=== PATIENT | female | born 1950 | race Caucasian/White ===

== ENCOUNTER 2022-07-23 09:26 | Observation (INO) | payer MEDICARE ==
[2022-07-18 09:36] VITALS: BMI 22.1
[~2022-07-23 09:26] MED LIST: ACETAMINOPHEN TAB 500 MG TAB PO PRN; GABAPENTIN 300 MG CAP PO PRN; MELOXICAM 7.5 MG TAB PO PRN; TRANEXAMIC ACID IN NACL,ISO-OS 1,000 MG in SALINE 1 100ML.BAG IVPB PRN; fentaNYL (PF) 50 MCG/ML 2 ML AMP IV PRN
[2022-07-23] MEDS: LACTATED RINGERS 1,000 ML IV SCH ×2 (09:54→18:04)
[2022-07-23] MEDS ORDERED: ONDANSETRON 4 MG/2 ML VIAL ONE (10:18)
[2022-07-23] MEDS ORDERED: DEXAMETHASONE SOD PHOSPHATE 4 MG/ML 1 ML VIAL IVP ONE (10:22)
[2022-07-23 10:34] LABS: Albumin 4.6 g/dL (3.5-5.0); Calcium 9.6 mg/dL (8.4-10.2); Potassium 3.9 mmol/L (3.5-5.1); Total Bilirubin 0.6 mg/dL (0.2-1.3); Total Protein 6.9 g/dL (6.3-8.2)
[2022-07-23] MEDS ORDERED: MIDAZOLAM 2 MG/2 ML VIAL IVP ONE (10:36)
[2022-07-23] MEDS ORDERED: NALOXONE 0.4 MG/ML 1 ML VIAL IV PRN (10:56)
[2022-07-23] MEDS ORDERED: NA PHOS,M-B/NA PHOS,DI-BA 133 ML ENEMA RECTAL PRN (10:56)
[2022-07-23] MEDS ORDERED: bisacodyL 10 MG SUPP RECTAL PRN (10:56)
[2022-07-23] MEDS ORDERED: ONDANSETRON 4 MG/2 ML VIAL IVP PRN (10:56)
[2022-07-23] MEDS ORDERED: MAGNESIUM HYDROXIDE 2,400 MG/10 ML CUP PO PRN (10:56)
[2022-07-23] MEDS ORDERED: ROPIVACAINE 5 MG/ML 30 ML VIAL ONE (10:57)
[2022-07-23] MEDS ORDERED: MIDAZOLAM 2 MG/2 ML VIAL ONE (10:57)
[2022-07-23] MEDS ORDERED: fentaNYL (PF) 50 MCG/ML 2 ML AMP ONE (10:57)
[2022-07-23] MEDS ORDERED: PHENYLEPHRINE-0.9% NACL SYG 1,000 MCG/10 ML SYRINGE ONE (10:57)
[2022-07-23] MEDS ORDERED: SODIUM CHLORIDE 0.9% (PF) 10 ML VIAL ONE (10:57)
[2022-07-23] MEDS ORDERED: TRANEXAMIC ACID IN NACL,ISO-OS 1,000 MG/100 ML BAG ONE (10:57)
[2022-07-23] MEDS ORDERED: KETAMINE 10 MG/ML 20 ML VIAL ONE (10:57)
[2022-07-23] MEDS ORDERED: PROPOFOL 10 MG/ML 20 ML VIAL IV ONE (10:57)
[2022-07-23] MEDS ORDERED: MORPHINE SULFATE 2 MG/ML SYRINGE IVP PRN ×3 (10:59)
[2022-07-23] MEDS ORDERED: ceFAZolin 1,000 MG in SODIUM CHLORIDE 0.9% 1,000 ML IRRIGATION ONE (11:01)
--- NOTE | 2022-07-23 12:06 | P.OP ---
Date of Procedure: 07/23/22 Preoperative Diagnosis: Severe osteoarthritis right knee Postoperative Diagnosis: Severe osteoarthritis right knee Procedure(s) Performed: Right total knee arthroplasty Implants: [employer] Journey II CR Oxinium cruciate retaining femoral component size 5, right [employer] Journey nonporous tibial baseplate size 4, right [employer] Journey II, XLPE Deep Dished articular insert, size 9 mm, Size 3- 4, right [employer] Journey Brittani II resurfacing patellar component, oval, 29 mm All components were cemented using Palacos R bone cement The articulation is Oxinium on polyethylene Anesthesia: spinal Surgeon: Mesfin Rodrigues Motor Boss #1: Raisa Garcia Estimated Blood Loss (ml): 40 Pathology: other (Bone and cartilage) Condition: stable Disposition: PACU Indications for Procedure: This is a 72-year-old female with a history of right knee osteoarthritis. The patient's knee is end-stage, and conservative management has failed. The operation of knee replacement has been discussed at length in the office, as well as potential risks and complications. These are inclusive of, but not limited to: Infection, bleeding, scarring, discomfort, stiffness, blood vessel and nerve damage, need for further surgery, failure to relieve symptoms, persistence, recurrence, or worsening of problems, loosening, dislocation, wear, blood clot, pulmonary embolism, , gait dysfunction, stiffness, and other risks as discussed in the office. Patient elects to proceed and the consent form has been signed. Operative Findings: The operative findings are consistent with severe osteoarthritis of the right knee Description of Procedure: Patient was seen in the preoperative area and the consent was reviewed and the operative site was marked with a skin marker. The patient verified the procedure and the operative site. An adductor canal pain catheter and an IPACK block were placed by anesthesia in the preoperative area. The patient was then brought to the operating room and positioned on the operating room table in the supine position. Preoperative antibiotics and a gram of transexamic acid were given intravenously. A spinal anesthetic was administered by the anesthesia department. Care was taken to make sure that all pressure points were adequately padded. A tourniquet was placed on the upper thigh and the lower extremity was prepped with ChloraPrep and draped in usual sterile fashion. A universal timeout was then performed which confirmed the patient's name, surgical site, ALLERGIES, and consent. The lower extremity was then exsanguinated and tourniquet was inflated to 250 mmHg. A standard anterior midline approach to the knee was performed. The skin and subcutaneous tissue were sharply dissected down to the patellar tendon. A medial parapatellar arthrotomy was then performed. The knee was then extended, the patellar was everted, and the knee was flexed. The infra-patellar fat pad was removed in order to enhance exposure. The anterior horns of both menisci were excised, and a release was performed to the posterior medial aspect of the knee. On gross visual inspection, there was complete loss of articular cartilage in the medial and patellofemoral joint spaces. There was also significant cartilage damage in the lateral compartment. There were multiple periarticular osteophytes globally about the knee which were then removed with a Ronguer. The femoral canal was then opened with the 9.5 mm intramedullary drill. The 8 mm intramedullary aye was then inserted into the femoral canal with the distal femoral cutting guide set for 5 of valgus. The distal femoral cutting block was then pinned in place. The intramedullary aye was then removed, and the distal femur was then cut. The cutting block was then removed and the cut was checked for symmetry. The resected bone was then measured to confirm the appropriate distal femoral resection. Next, the sizing guide was then placed and set for 3 external rotation based off of the epicondylar axis and Lorenza's line. Pins were then placed and the drill holes, and the femur was sized with the sizing stylus. The pins were then removed, and the sizing guide was then removed. The spikes of the appropriate size femoral block was then placed into the predrilled holes, and malleted into place. Two 45 mm pins were then placed into the fixation holes on the cutting block. An angela wing was then used to ensure there would be no notching with the anterior cut. The anterior condyles were cut without notching. The anterior chord cut was then performed, followed by the posterior cut, posterior chamfer cut, and the anterior chamfer cut. The collateral ligaments were protected during the entire process. The cutting block was then removed. Any remaining bone and osteophytes were removed from the femur with a Ronguer. Attention was then directed to the tibia. The remaining ACL was removed with a Ronguer, and the tibia was then gently subluxed forward with a large bent knee retractor. Any remaining menisci were excised. The posterior lateral corner was cauterized in order to coagulate the lateral geniculate artery. The extra medullary tibial cutting guide was then placed, set for the appropriate rotation, slope, and depth of resection. The proximal tibia cutting guide was then pinned in place. Proximal tibia was then cut and sized. A curved osteotome was then used to remove any posterior osteophytes from the distal femur. The femoral trial was placed. A narrow saw blade was then used to remove the anterior intracondylar femoral bone. The CR notch trial was then placed. The tibial trial was placed with the appropriate-sized insert. The knee was able to fully extend and flex to 130 and was stable throughout all range of motion. The knee was then extended and the patella was everted. Patella was then measured, and then using an osteotomy guide, the patella was cut at the appropriate level. The patellar component was sized. The patellar drill guide was placed and the patella was drilled. The patella trial was then placed. The knee was then taken through range of motion with the patella trial and the patella tracked normally using the no thumbs technique. The patella trial was then removed. The knee was then flexed and lug holes were drilled through the femoral trial and the femoral trial was then removed. The tibial was then re- exposed, and the tibial broach guide was then pinned in place after it was set for the appropriate rotation to allow for the most coverage without overhang. The tibia was then reamed and broached. The femoral canal was plugged with autologous bone. The cut surfaces of bone were then irrigated with pulsatile lavage. The knee was also irrigated with Irrisept solution. The components were then opened, the cement was mixed. Cement was placed on the backside of the femoral, tibial, and patellar components. Cement was then applied to the tibial surface and pressurized into the surface using finger pressurization technique. The tibial component was then applied and excess cement was removed after it was impacted securely noted to be flush with the cut surface. In similar fashion, the cement was applied to the cut femoral surface, pressurized and using finger pressurization the component was impacted in place. Excess cement was removed. The polyethylene spacer was then implanted and locked into position. Patellar component was then applied in a similar technique and the patellar clamp was used to hold patella in place while the jeremiah ent hardened. The knee was held in full extension while the cement hardened. Once the cement had fully hardened, the knee was reinspected. Any other cement extrusion was removed the final range of motion testing showed range of motion from 0-130 with excellent stability, both medial and laterally and appropriate alignment of the leg. Patella tracked normally[default value] After the cemented hardened, the tourniquet was released and hemostasis was obtained. A second gram of transexamic acid was given intravenously. The knee was again irrigated. The knee was again taken through range of motion and found to be stable throughout all range of motion of 0-130, and the patella tracked normally. The fascia was then closed with 0 Vicryl followed by #2 strata fix suture. The subcutaneous tissue was closed with 3-0 Vicryl and 3-0 strata fix. Exofin glue was used for the skin and placed with the knee in flexion. After the glue had dried, and Optafoam silver impregnated dressing was applied. A lightly compressive dressing was applied using web roll and Mehrdad wrap. Patient was then transferred to the stretcher and taken to recovery room in stable condition. Sponge and needle counts were correct. The surgical physician assistant SONYA Garza was required due the complexity surgery and the need for a skilled surgical appliance fitter. She assisted in positioning, draping, retraction, and closure of the wound.
--- NOTE | 2022-07-23 12:26 | P.ANPRN ---
Procedure Note - Anesthesia - Nerve Block Performed Right Adductor Canal Infusion Time Out Performed: Yes (1035) Date of Procedure: 07/23/22 Procedure Start Time: 10:36 Procedure Stop Time: 10:41 Location of Patient: PreOp Indication: Acute Post-Operative Pain, Requested by Surgeon Specifically requested for management of pain by DrSera: Mesfin Rodrigues Sedation Type: Sedate with meaningful contact maintained Preparation: Sterile Prep, Sterile Dressing Position: Supine Catheter Depth at Skin (cm): 8 Catheter: Indwelling Needle Types: Pajunk Needle Gauge: 18, 21 Ultrasound used to visualize needle placement: Yes Ultrasound used to observe medication spread: Yes Injectate: 0.5% Ropivacaine (see comment for volume) (15cc + 10cc nacl pf) Blood Aspirated: No Pain Paresthesia on Injection Noted: No Resistance on Injection: Normal Image Stored and Saved: Yes Events: Uneventful and Well Tolerated
--- NOTE | 2022-07-23 12:27 | P.ANPRN ---
Procedure Note - Anesthesia - Nerve Block Performed Right iPack Single Time Out Performed: Yes (1035) Date of Procedure: 07/23/22 Procedure Start Time: 10:42 Procedure Stop Time: 10:44 Location of Patient: PreOp Indication: Acute Post-Operative Pain, Requested by Surgeon Specifically requested for management of pain by DrSera: Mesfin Rodrigues Sedation Type: Sedate with meaningful contact maintained Preparation: Sterile Prep Position: Supine Catheter: None Needle Types: Pajunk Needle Gauge: 21 Ultrasound used to visualize needle placement: Yes Ultrasound used to observe medication spread: Yes Injectate: 0.5% Ropivacaine (see comment for volume) (15cc +10cc nacl pf) Blood Aspirated: No Pain Paresthesia on Injection Noted: No Resistance on Injection: Normal Image Stored and Saved: Yes Events: Uneventful and Well Tolerated
[2022-07-23] MEDS ORDERED: ROPIVACAINE 0.2%-NS ON-Q PUMP 2 MG/ML EACH MISCELLANE ONE (13:00)
--- NOTE | 2022-07-23 13:12 | XR ---
EXAMINATION TYPE: XR knee limited RT DATE OF EXAM: 07/23/2022 COMPARISON: NONE TECHNIQUE: Two views submitted HISTORY: Post op FINDINGS: There is a prosthetic knee in near anatomic alignment. There is soft tissue edema and emphysema. IMPRESSION: 1. Postoperative change. Appears in near-anatomic alignment
[2022-07-23] MEDS: HYDROcodone/APAP 7.5-325MG 1 EACH TAB PO PRN ×2 (15:10→20:46)
[2022-07-23] MEDS: SODIUM CHLORIDE 0.9% 1,000 ML IV SCH (18:14)
[2022-07-23] MEDS: MORPHINE SULFATE 2 MG/ML SYRINGE IVP PRN ×2 (18:56→22:54)
[2022-07-23] MEDS: SENNOSIDES-DOCUSATE SODIUM 1 EACH TAB PO SCH (20:46)
[2022-07-23] MEDS: ASPIRIN 325 MG TAB PO SCH (20:47)
[2022-07-24] MEDS: SODIUM CHLORIDE 0.9% 1,000 ML IV SCH ×2 (02:45→20:58)
[2022-07-24] MEDS: HYDROcodone/APAP 7.5-325MG 1 EACH TAB PO PRN ×3 (04:12→22:27)
--- NOTE | 2022-07-24 07:31 | P.DS ---
Providers Expected date of discharge: 07/24/22 Attending physician: Mesfin Rodrigues Consults: 07/23/22 10:56 Consult Physician Routine Consulting Provider: Nieves Romeo Consult Reason/Comments: medical management Do you want consulting provider notified?: Yes Primary care physician: Bianca Mendez - Discharge Diagnosis(es) (1) Primary localized osteoarthritis of right knee Current Visit: Yes Status: Acute (2) Status post total right knee replacement Current Visit: Yes Status: Acute Hospital Course: This is a 72-year-old female who was last seen with complaint of continued right knee pain. The patient has a known history of degenerative arthritis of the right knee and presents to discuss surgical options. After discussion and consideration the patient elects to proceed with total right knee arthroplasty. The patient is seen preoperatively by her primary care physician and cleared for surgery. The patient is admitted to [facility] for total right knee arthroplasty. The procedures performed without complication or sequelae. P atient is doing well postoperatively. Vital signs are stable at discharge. Labs are stable at discharge. the patient is ambulating well with walker with minimal assistance. The patient is discharged to home on postop day #1 pending medical clearance. Please see orders and refer to the med rec for accurate list of medications. Patient Condition at Discharge: Good Plan - Discharge Summary Discharge Rx Participant: Yes New Discharge Prescriptions: New Aspirin 325 mg PO BID #60 tab HYDROcodone/APAP 7.5-325MG [[place] 7.5-325] 1 - 2 tab PO Q6H PRN #32 tab PRN Reason: Pain Sennosides [Senokot] 2 tab PO DAILY PRN #60 tablet PRN Reason: Constipation No Action Aspirin 81 mg PO AC-BRKFST #0 Calcium Citrate/Vitamin D3 [Citracal + D Maximum Caplet] 1 each PO DAILY Fluticasone/Umeclidin/Vilanter [Trelegy Ellipta 100-62.5-25] 1 inhalation INHALATION DAILY Montelukast [Singulair] 10 mg PO DAILY [place]-3 Fatty Acids [[place]-3] 1,000 mg PO DAILY Potassium Gluconate [Potassium Gluconate ER] 99 mg PO DAILY valACYclovir HCL [Valacyclovir] 500 mg PO BID Albuterol Sulfate [Albuterol Sulfate Hfa] 1 puff PO Q4-6H busPIRone HCL 10 mg PO BID diphenhydrAMINE [Benadryl] 25 mg PO HS DULoxetine HCL [Cymbalta] 60 mg PO HS Losartan/Hydrochlorothiazide [Losartan-Hctz 100-25 mg Tab] 1 tab PO DAILY Melatonin [Melatonin ER] 10 mg PO HS Meloxicam [Mobic] 15 mg PO DAILY Omeprazole 20 mg PO BID Vitamin B Complex 1 each PO HS Discharge Medication List Aspirin 81 mg PO AC-BRKFST #0 08/10/14 [Rx] Albuterol Sulfate [Albuterol Sulfate Hfa] 1 puff PO Q4-6H 07/18/22 [History] Calcium Citrate/Vitamin D3 [Citracal + D Maximum Caplet] 1 each PO DAILY 07/18/22 [History] DULoxetine HCL [Cymbalta] 60 mg PO HS 07/18/22 [History] Fluticasone/Umeclidin/Vilanter [Trelegy Ellipta 100-62.5-25] 1 inhalation INHALATION DAILY 07/18/22 [History] Losartan/Hydrochlorothiazide [Losartan-Hctz 100-25 mg Tab] 1 tab PO DAILY 07/18/22 [History] Melatonin [Melatonin ER] 10 mg PO HS 07/18/22 [History] Meloxicam [Mobic] 15 mg PO DAILY 07/18/22 [History] Montelukast [Singulair] 10 mg PO DAILY 07/18/22 [History] [place]-3 Fatty Acids [[place]-3] 1,000 mg PO DAILY 07/18/22 [History] Omeprazole 20 mg PO BID 07/18/22 [History] Potassium Gluconate [Potassium Gluconate ER] 99 mg PO DAILY 07/18/22 [History] Vitamin B Complex 1 each PO HS 07/18/22 [History] busPIRone HCL 10 mg PO BID 07/18/22 [History] diphenhydrAMINE [Benadryl] 25 mg PO HS 07/18/22 [History] valACYclovir HCL [Valacyclovir] 500 mg PO BID 07/18/22 [History] Aspirin 325 mg PO BID #60 tab 07/23/22 [Rx] HYDROcodone/APAP 7.5-325MG [[place] 7.5-325] 1 - 2 tab PO Q6H PRN #32 tab 07/23/22 [Rx] Sennosides [Senokot] 2 tab PO DAILY PRN #60 tablet 07/23/22 [Rx] Follow up Appointment(s)/Referral(s): Mesfin Rodrigues DO [Doctor of Osteopathic Medicine] - 2 Weeks Activity/Diet/Wound Care/Special Instructions: Weightbearing as tolerated with a walker. CPM 5-6h daily as tolerated. Leave dressing intact. Dressing may be removed by home care nurse or by patient in 7 days. Then change dressing twice daily until follow up. May shower with initial dressing intact and after removal. If dressing become saturated, please remove. Recommend use of compression stockings daily until follow up to help prevent swelling and blood clots. May remove at night before sleeping. Please take aspirin 325mg twice daily for 30 days to prevent blood clots. Please follow up with [facility] and call with any questions or concerns, . Discharge Disposition: HOME WITH HOME HEALTH SERVICES
--- NOTE | 2022-07-24 09:09 | P.PN ---
Progress Note - Text Progress Note Date: 07/24/22 (013) Anesthesiology Postop day 1 status post total knee arthroplasty with adductor canal catheter. Patient doing well. VAS 9.5 out of 10. Breakthrough medicines ordered and just given by nurse. Gross strength intact in lower extremity. Afebrile. Denies alterations in sensorium. Catheter site intact. Heart regular rate Lungs nonlabored Abdomen nondistended Assessment: Postop day 1 status post total knee arthroplasty with adductor canal catheter Plan: All questions answered. Maintain catheter 2 more days with patient removal at home. Instructions to be given at discharge.
[2022-07-24] MEDS: ASPIRIN 325 MG TAB PO SCH ×2 (09:47→20:55)
[2022-07-24 11:27] LABS: Basophils # (A) 0.02 X 10*3/uL (0.00-0.10); Basophils % (A) 0.3 %; Eosinophils # (A) 0.07 X 10*3/uL (0.04-0.35); Eosinophils % (A) 0.9 %; HCT 30.1 % (37.2-46.3); HGB 9.4 g/dL (12.0-15.0); Immature Grans, Automated 0.4 %; Lymphocytes # (A) 1.34 X 10*3/uL (0.90-5.00); Lymphocytes % (A) 17.9 %; MCH 30.4 pg (27.0-32.0); MCHC 31.2 g/dL (32.0-37.0); MCV 97.4 fL (80.0-97.0); Mean Platelet Volume 9.9 fL (9.5-12.2); Monocytes # (A) 1.15 X 10*3/uL (0.20-1.00); Monocytes % (A) 15.3 %; NRBC Per 100 WBC 0 /100 WBCS (0.0-0.0); Neutrophils # (A) 4.89 X 10*3/uL (1.80-7.70); Neutrophils % (A) 65.2 %; Platelet Count 259 X 10*3/uL (140-440); RBC 3.09 X 10*6/uL (4.10-5.20); RDW 14.2 % (11.5-14.5)
[2022-07-24] MEDS ORDERED: ALPRAZolam 0.25 MG TAB PO PRN (11:44)
[2022-07-24] MEDS ORDERED: SYMBICORT 80-4.5 MCG INHALER INHALATION SCH (13:00)
--- NOTE | 2022-07-24 13:09 | P.CONS ---
History of Present Illness - Reason for Consult Consult date: 07/24/22 Medical management, postop right total knee arthroplasty - History of Present Illness This is a 72-year-old female who was admitted under orthopedic services and is postop right total knee arthroplasty a #1. Patient continues to have pain adjust medications being made per orthopedics. Patient follows with Dr. Giuliana Mendez outpatient with a past medical history of CVA/TIA, GERD, hypertension, osteoarthritis, rheumatoid arthritis, anxiety/depression and reports being a former smoker. Pain management per orthopedics. Patient is having some increased anxiety and will add low-dose xanax. Patient is afebrile denies chest pain or shortness of breath. Patient reports she is staying 1 more night due to pain management. Patient was able to work with physical therapy recommend working with daily. Patient will be going home and has a roommate that will help her. Patient with incentive spirometer at the bedside and encouraged to continue using at least 10 times every hour while awake. CBC reviewed today and within normal limits and white blood count is 7.5 with a hemoglobin of 9.4. Review Of Systems: Constitutional: No fever, no chills, no night sweats. No weight change. No weakness, fatigue or lethargy. No daytime sleepiness. EENT: No headache. No blurred vision or double vision, no loss of vision. No loss of Hearing, no ringing in the ears, no dizziness. No nasal drainage or congestion. No epistaxis. No sore throat. Lungs: No shortness of breath, cough, no sputum production. No wheezing. Cardiovascular: No chest pain, no lower extremity edema. No palpitations. No paroxysmal nocturnal dyspnea. No orthopnea. No lightheadedness or dizziness. No syncopal episodes. Abdominal: No abdominal pain. No nausea, vomiting. No diarrhea. No constipation. No bloody or tarry stools.. No loss of appetite. Genitourinary: No dysuria, increased frequency, urgency. No urinary retention. Musculoskeletal: No myalgias. No muscle weakness, no gait dysfunction, no frequent falls. No back pain. No neck pain. Reports right knee pain Integumentary: No wounds, no lesions. No rash or pruritus. No unusual bruising. No change in hair or nails. Neurologic: No aphasia. No facial droop. No change in mentation. No head injury. No headache. No paralysis. No paresthesia. Psychiatric: No depression. Reports some increased anxiety. No mood swings. Endocrine: No abnormal blood sugars. No weight change. No excessive sweating or thirst. No cold intolerance. PHYSICAL EXAMINATION: GENERAL: The patient is alert and oriented x4, thin built, elderly appearing female Well developed, well nourished. HEENT: Pupils are round and equally reacting to light. EOMI. no scleral icterus. No conjunctival pallor. Normocephalic, atraumatic. No pharyngeal erythema. No thyromegaly. CARDIOVASCULAR: S1 and S2 muffled PULMONARY: diminished breath sounds bilaterally with no wheezing or rhonchi noted. ABDOMEN: soft. Nontender on exam. non-distended, normoactive bowel sounds. No palpable organomegaly. MUSCULOSKELETAL: No joint swelling or deformity. EXTREMITIES: No cyanosis, clubbing, or pedal edema. Right surgical knee dressing is dry and intact with no surrounding erythema or swelling noted NEUROLOGICAL: Gross neurological examination did not reveal any focal deficits. SKIN: No rashes. Assessment: Post right total knee arthroplasty, postop day #1 History of CVA/TIA Gastroesophageal reflux disease Hypertension Osteoarthritis Rheumatoid arthritis History of anxiety/depression THC use GI prophylaxis DVT prophylaxis Full code Plan: Recommend to continue with current medications and management per orthopedic services. Patient has been seen and evaluated by PT/OT therapy and will be monitored overnight for pain management patient was reporting severe pain of the right knee. Patient having some anxiety will add low-dose xanax. Labs reviewed and within normal limits. Patient reports tolerating diet with no nausea or vomiting noted. All medications have been reviewed and resumed. Patient's blood pressures currently normotensive and recommend to hold blood pressure medication until returning home. Patient's medical record shows she takes Valtrex daily and okay to resume once returning home. Recommend to encourage oral intake and continue working with physical therapy. Patient to continue with incentive spirometer use at least 10 times every hour while awake. We will continue to follow with orthopedics during hospitalization. Thank you for this consultation. The impression and plan of care has been dictated by Rachell Alvarez, nurse practitioner as directed. Dr. Courtney MD I have performed a history and examination and MDM of this patient, discussed the same with the dictator, and agree with the dictator's assessment and plan as written ,documented as a scribe. Based on total visit time, I have performed more than 50% of the visit. Any additional findings or plans will be noted. Past Medical History Past Medical History: CVA/TIA, GERD/Reflux, Hypertension, Osteoarthritis (OA), Rheumatoid Arthritis (RA) Additional Past Medical History / Comment(s): MEMORY ISSUES, Left sided weakness, History of Any Multi-Drug Resistant Organisms: None Reported Past Surgical History: Appendectomy, Bowel Resection, Cholecystectomy, Hysterectomy, Orthopedic Surgery, Tonsillectomy Additional Past Surgical History / Comment(s): MEGHA THUMB SX, MEGHA CATARACT SX, COLONOSCOPY, total right knee arthroplasty. Past Anesthesia/Blood Transfusion Reactions: No Reported Reaction Past Psychological History: Anxiety, Depression Smoking Status: Former smoker Past Alcohol Use History: Occasional Additional Past Alcohol Use History / Comment(s): QUIT SMOKING 2007 Past Drug Use History: Marijuana Additional Drug Use History / Comment(s): USES MARIJUANA ON OCCASION-INSTRUCTED TO REFRAIN FROM USE FOR AT LEAST 24 HOURS PRIOR TO PROCEDURE - Past Family History Sister(s) Family Medical History: Cancer Additional Family Medical History / Comment(s): LUNG Father Family Medical History: Cancer Additional Family Medical History / Comment(s): COLON Medications and Allergies Home Medications Medication Instructions Recorded Confirmed Type Albuterol Sulfate [Albuterol 1 puff PO Q4-6H 07/18/22 07/23/22 History Sulfate Hfa] Calcium Citrate/Vitamin D3 1 each PO DAILY 07/18/22 07/23/22 History [Citracal + D Maximum Caplet] DULoxetine HCL [Cymbalta] 60 mg PO HS 07/18/22 07/23/22 History Fluticasone/Umeclidin/Vilanter 1 inhalation INHALATION DAILY 07/18/22 07/23/22 History [Trelegy Ellipta 100-62.5-25] Losartan/Hydrochlorothiazide 1 tab PO DAILY 07/18/22 07/23/22 History [Losartan-Hctz 100-25 mg Tab] Melatonin [Melatonin ER] 10 mg PO HS 07/18/22 07/23/22 History Meloxicam [Mobic] 15 mg PO DAILY 07/18/22 07/23/22 History Montelukast [Singulair] 10 mg PO DAILY 07/18/22 07/23/22 History [place]-3 Fatty Acids [[place]-3] 1,000 mg PO DAILY 07/18/22 07/23/22 History Omeprazole 20 mg PO BID 07/18/22 07/23/22 History Potassium Gluconate [Potassium 99 mg PO DAILY 07/18/22 07/23/22 History Gluconate ER] Vitamin B Complex 1 each PO HS 07/18/22 07/23/22 History busPIRone HCL 10 mg PO BID 07/18/22 07/23/22 History diphenhydrAMINE [Benadryl] 25 mg PO HS 07/18/22 07/23/22 History valACYclovir HCL [Valacyclovir] 500 mg PO BID 07/18/22 07/23/22 History Aspirin 325 mg PO BID #60 tab 07/23/22 Rx HYDROcodone/APAP 7.5-325MG [[place] 1 - 2 tab PO Q6H PRN #32 tab 07/23/22 Rx 7.5-325] Sennosides [Senokot] 2 tab PO DAILY PRN #60 tablet 07/23/22 Rx Allergies Allergy/AdvReac Type Severity Reaction Status Date / Time cefaclor [From Ceclor] Allergy Swelling Verified 07/23/22 09:56 codeine Allergy Swelling Verified 07/23/22 09:56 hydromorphone HCl Allergy Itching Verified 07/23/22 09:56 [From Dilaudid] Sulfa (Sulfonamide Allergy Swelling Verified 07/23/22 09:56 Antibiotics) tetracycline [Tetracycline] Allergy Swelling Verified 07/23/22 09:56 venom-honey bee Allergy Rash/Hives Verified 07/23/22 09:56 [bee venom (honey bee)] Physical Exam Vitals: Vital Signs Temp Pulse Resp BP Pulse Ox 07/24/22 08:00 98.9 F 75 17 116/71 93 L 07/24/22 02:00 98.4 F 73 17 117/66 95 07/23/22 20:00 98.3 F 78 16 107/69 94 L 07/23/22 19:40 78 16 07/23/22 18:05 88 16 127/74 94 L 07/23/22 17:15 62 16 112/72 94 L 07/23/22 16:15 81 16 110/64 94 L 07/23/22 15:43 88 16 125/61 98 07/23/22 14:31 72 16 144/69 98 07/23/22 14:00 71 16 115/66 98 07/23/22 13:45 65 16 114/64 98 07/23/22 13:30 64 16 112/61 98 07/23/22 13:15 65 16 121/74 96 07/23/22 13:00 68 16 122/74 96 07/23/22 12:45 64 16 117/69 96 07/23/22 12:26 99.6 F 73 16 114/66 92 L 07/23/22 10:55 69 16 118/68 98 07/23/22 09:56 97.5 F L 71 16 143/71 99 Intake and Output 07/23/22 07/24/22 07/24/22 22:59 06:59 14:59 Intake Total 50 Balance 50 Intake: IV 50 Other: Voiding Method Toilet # Voids 2 Weight 57.2 kg Results CBC & Chem 7: 07/24/22 06:15 07/23/22 09:59 Labs: Abnormal Lab Results - Last 24 Hours (Table) 07/23/22 Range/Units 09:59 BUN 19 H (7-17) mg/dL Glucose 104 H (74-99) mg/dL
[2022-07-24] MEDS ORDERED: ALBUTEROL NEBULIZED 2.5 MG/3 ML INHALATION SCH (14:00)
[2022-07-24] MEDS: LACTATED RINGERS 1,000 ML IV SCH (14:48)
[2022-07-24] MEDS: MORPHINE SULFATE 2 MG/ML SYRINGE IVP PRN ×2 (15:44→20:57)
[2022-07-24] MEDS: PANTOPRAZOLE 40 MG TABLET PO SCH ×2 (15:45→20:58)
[2022-07-24] MEDS: busPIRone HCl 10 MG TAB PO SCH ×2 (15:45→20:58)
[2022-07-24] MEDS: IPRATROPIUM-ALBUTEROL 3 ML NEB INHALATION SCH ×2 (16:40→21:09)
[2022-07-24] MEDS: SENNOSIDES-DOCUSATE SODIUM 1 EACH TAB PO SCH (20:54)
[2022-07-24] MEDS ORDERED: DULoxetine HCL 60 MG CAPSULE.DR PO SCH (21:00)
[2022-07-24] MEDS ORDERED: diphenhydrAMINE 25 MG CAP PO SCH (21:00)
[2022-07-24] MEDS ORDERED: MELATONIN 5 MG TABLET PO SCH (21:00)
[2022-07-24] MEDS ORDERED: NON FORMULARY DRUG (Vitamin B Complex [Vitamin B Complex] 1 EACH Capsule) PO SCH (21:00)
[2022-07-24 21:54] VITALS: RESP 18
[2022-07-25] MEDS: IPRATROPIUM-ALBUTEROL 3 ML NEB INHALATION SCH ×2 (07:53→11:23)
[2022-07-25 08:43] VITALS: BP 144/92; TEMP 98.4
[2022-07-25] MEDS: HYDROcodone/APAP 7.5-325MG 1 EACH TAB PO PRN ×2 (08:51→09:03)
[2022-07-25] MEDS: busPIRone HCl 10 MG TAB PO SCH (08:52)
[2022-07-25] MEDS: PANTOPRAZOLE 40 MG TABLET PO SCH (08:53)
[2022-07-25] MEDS: ASPIRIN 325 MG TAB PO SCH (08:53)
[2022-07-25] MEDS ORDERED: MONTELUKAST 10 MG TAB PO SCH (09:00)
[2022-07-25] MEDS ORDERED: CALCIUM CARB-VIT D 500 MG-5 MCG TAB PO SCH (09:00)
[2022-07-25] MEDS ORDERED: NON FORMULARY DRUG (Omega-3 Fatty Acids [Omega-3] 1,000 MG Capsule) PO SCH (09:00)
[2022-07-25] MEDS ORDERED: NON FORMULARY DRUG (Potassium Gluconate [Potassium Gluconate Er] 99 MG Tablet) PO SCH (09:00)
[2022-07-25] MEDS: LACTATED RINGERS 1,000 ML IV SCH (10:25)
[2022-07-25] MEDS: SODIUM CHLORIDE 0.9% 1,000 ML IV SCH (10:27)
[2022-07-25 11:33] VITALS: PULSE 86
--- NOTE | 2022-07-25 13:32 | P.DS ---
Providers Date of admission: 07/25/22 08:10 Expected date of discharge: 07/25/22 Attending physician: Mesfin Rodrigues Consults: 07/23/22 10:56 Consult Physician Routine Consulting Provider: Nieves Romeo Consult Reason/Comments: medical management Do you want consulting provider notified?: Yes Primary care physician: Bianca Mendez - Discharge Diagnosis(es) (1) Primary localized osteoarthritis of right knee Current Visit: Yes Status: Acute (2) Status post total right knee replacement Current Visit: Yes Status: Acute Hospital Course: This is a 72-year-old female with known history of degenerative arthritis of the right knee. The patient presents for evaluation. After discussion and consideration patient elects to proceed with total knee arthroplasty. The patient is seen preoperatively by Dr. Rodrigues and cleared for surgery. Patient is admitted to [facility] on 07/23/2022 for total knee arthroplasty. The procedures performed without complication or sequelae. The patient is doing well postoperatively. Labs and vital signs are stable on day of discharge. On day of discharge patient's knee incision is healing well. There is minimal erythema. There is no drainage noted at this time. There is minimal soft tissue swelling to the hip and thigh. Patient has full foot and ankle motion without difficulty or pain. Neurovascular status to the right lower extremity is intact. Patient is discharged home in good condition. Please see med rec for accurate list of home medications. Patient Condition at Discharge: Good Plan - Discharge Summary Discharge Rx Participant: Yes New Discharge Prescriptions: New Aspirin 325 mg PO BID #60 tab HYDROcodone/APAP 7.5-325MG [[place] 7.5-325] 1 - 2 tab PO Q6H PRN #32 tab PRN Reason: Pain Sennosides [Senokot] 2 tab PO DAILY PRN #60 tablet PRN Reason: Constipation Continue Calcium Citrate/Vitamin D3 [Citracal + D Maximum Caplet] 1 each PO DAILY Fluticasone/Umeclidin/Vilanter [Trelegy Ellipta 100-62.5-25] 1 inhalation INHALATION DAILY Montelukast [Singulair] 10 mg PO DAILY [place]-3 Fatty Acids [[place]-3] 1,000 mg PO DAILY Potassium Gluconate [Potassium Gluconate ER] 99 mg PO DAILY valACYclovir HCL [Valacyclovir] 500 mg PO BID Albuterol Sulfate [Albuterol Sulfate Hfa] 1 puff PO Q4-6H busPIRone HCL 10 mg PO BID diphenhydrAMINE [Benadryl] 25 mg PO HS DULoxetine HCL [Cymbalta] 60 mg PO HS Losartan/Hydrochlorothiazide [Losartan-Hctz 100-25 mg Tab] 1 tab PO DAILY Melatonin [Melatonin ER] 10 mg PO HS Meloxicam [Mobic] 15 mg PO DAILY Omeprazole 20 mg PO BID Vitamin B Complex 1 each PO HS Discontinued Aspirin 81 mg PO -[facility] #0 Discharge Medication List Albuterol Sulfate [Albuterol Sulfate Hfa] 1 puff PO Q4-6H 07/18/22 [History] Calcium Citrate/Vitamin D3 [Citracal + D Maximum Caplet] 1 each PO DAILY 06/29 [History] DULoxetine HCL [Cymbalta] 60 mg PO HS 07/18/22 [History] Fluticasone/Umeclidin/Vilanter [Trelegy Ellipta 100-62.5-25] 1 inhalation INHALATION DAILY 07/18/22 [History] Losartan/Hydrochlorothiazide [Losartan-Hctz 100-25 mg Tab] 1 tab PO DAILY 07/18/22 [History] Melatonin [Melatonin ER] 10 mg PO HS 07/18/22 [History] Meloxicam [Mobic] 15 mg PO DAILY 07/18/22 [History] Montelukast [Singulair] 10 mg PO DAILY 07/18/22 [History] [place]-3 Fatty Acids [[place]-3] 1,000 mg PO DAILY 07/18/22 [History] Omeprazole 20 mg PO BID 07/18/22 [History] Potassium Gluconate [Potassium Gluconate ER] 99 mg PO DAILY 07/18/22 [History] Vitamin B Complex 1 each PO HS 07/18/22 [History] busPIRone HCL 10 mg PO BID 07/18/22 [History] diphenhydrAMINE [Benadryl] 25 mg PO HS 07/18/22 [History] valACYclovir HCL [Valacyclovir] 500 mg PO BID 07/18/22 [History] Aspirin 325 mg PO BID #60 tab 07/23/22 [Rx] HYDROcodone/APAP 7.5-325MG [[place] 7.5-325] 1 - 2 tab PO Q6H PRN #32 tab 07/23/22 [Rx] Sennosides [Senokot] 2 tab PO DAILY PRN #60 tablet 07/23/22 [Rx] Follow up Appointment(s)/Referral(s): [facility] [NON-STAFF] - As Needed (Continuous Passive Motion knee machine) Bianca Mendez DO [Primary Care Provider] - 1 Week (office is not answering Please call to schedule appointment) [facility], [NON-STAFF] - As Needed Mesfin Rodrigues DO [Doctor of Osteopathic Medicine] - 08/05/22 1:30 pm (please set up primary doctor then call for appointment) Activity/Diet/Wound Care/Special Instructions: Weightbearing as tolerated with a walker. CPM 5-6h daily as tolerated. Leave dressing intact. Dressing may be removed by home care nurse or by patient in 7 days. Then change dressing twice daily until follow up. May shower with initial dressing intact and after removal. If dressing become saturated, please remove. Recommend use of compression stockings daily until follow up to help prevent swelling and blood clots. May remove at night before sleeping. Please take aspirin 325mg twice daily for 30 days to prevent blood clots. Please follow up with [facility] and call with any questions or concerns, . Discharge Disposition: HOME WITH HOME HEALTH SERVICES
--- NOTE | 2022-07-26 15:28 | P.PN ---
Subjective Progress Note Date: 07/25/22 - Reason for Consult Consult date: 07/24/22 Medical management, postop right total knee arthroplasty - History of Present Illness This is a 72-year-old female who was admitted under orthopedic services and is postop right total knee arthroplasty a #1. Patient continues to have pain adjust medications being made per orthopedics. Patient follows with Dr. Giuliana Mendez outpatient with a past medical history of CVA/TIA, GERD, hypertension, osteoarthritis, rheumatoid arthritis, anxiety/depression and reports being a former smoker. Pain management per orthopedics. Patient is having some increased anxiety and will add low-dose xanax. Patient is afebrile denies chest pain or shortness of breath. Patient reports she is staying 1 more night due to pain management. Patient was able to work with physical therapy recommend working with daily. Patient will be going home and has a roommate that will help her. Patient with incentive spirometer at the bedside and encouraged to continue using at least 10 times every hour while awake. CBC reviewed today and within normal limits and white blood count is 7.5 with a hemoglobin of 9.4. 07/25/2022 She is seen in follow-up today reports to having no acute overnight issues noted. Patient reports she is feeling significantly improved and pain is controlled on current regimen. Patient reports she will be going home today and has support at home. Vital signs are stable patient is afebrile denies chest pain or shortness of breath. Patient does have incentive spirometer at the bedside and encourage the patient to continue using even at home at least 10 times an hour while awake. Patient to follow-up with orthopedics along with primary care provider on discharge. Review of systems: Constitutional: No reports of fatigue, fever, or chills Cardiovascular: No reports of chest pain or palpitations Respiratory: No reports of shortness of breath or cough GI: No reports of nausea, vomiting, or diarrhea : No reports of dysuria or retention Neurovascular: No reports of weakness or numbness All medications have been reviewed PHYSICAL EXAMINATION: GENERAL: The patient is alert and oriented x4, thin built, elderly appearing female Well developed, well nourished. HEENT: Pupils are round and equally reacting to light. EOMI. no scleral icterus. No conjunctival pallor. Normocephalic, atraumatic. No pharyngeal erythema. No thyromegaly. CARDIOVASCULAR: S1 and S2 muffled PULMONARY: diminished breath sounds bilaterally with no wheezing or rhonchi noted. ABDOMEN: soft. Nontender on exam. non-distended, normoactive bowel sounds. No palpable organomegaly. MUSCULOSKELETAL: No joint swelling or deformity. EXTREMITIES: No cyanosis, clubbing, or pedal edema. Right surgical knee dressing is dry and intact with no surrounding erythema or swelling noted NEUROLOGICAL: Gross neurological examination did not reveal any focal deficits. SKIN: No rashes. Assessment: Post right total knee arthroplasty, postop day #2 History of CVA/TIA Gastroesophageal reflux disease Hypertension Osteoarthritis Rheumatoid arthritis History of anxiety/depression THC use GI prophylaxis DVT prophylaxis Full code Plan: Recommend to continue with current medications and management per orthopedic services. Patient has been seen and evaluated by PT/OT therapy and will be going home today. Patient did well and pain is managed on current regimen. Patient reports tolerating diet with no nausea or vomiting noted. All medications have been reviewed and resumed. Patient's blood pressures currently normotensive and recommend to hold blood pressure medication until returning home. Patient's medical record shows she takes Valtrex daily and okay to resume once returning home. Recommend to encourage oral intake. Patient to continue with incentive spirometer use at least 10 times every hour while awake. We will continue to follow with orthopedics during hospitalization. Thank you for this consultation. Patient will be discharged this afternoon. The impression and plan of care has been dictated by Rachell Alvarez, nurse practitioner as directed. Dr. Courtney MD I have performed a history and examination and MDM of this patient, discussed the same with the dictator, and agree with the dictator's assessment and plan as written ,documented as a scribe. Based on total visit time, I have performed more than 50% of the visit. Any additional findings or plans will be noted. Objective - Vital Signs Vital signs: Vital Signs Temp 98.4 F 07/25/22 08:00 Pulse 86 07/25/22 11:32 Resp 18 07/25/22 08:00 BP 144/92 07/25/22 08:00 Pulse Ox 91 L 07/25/22 08:00 FiO2 - Labs CBC & Chem 7: 07/24/22 06:15 07/23/22 09:59
== END 2022-07-25 13:54 | disposition home health service (06) ==
LOC: OR 09:26 → 4SSUR 12:26 → OR 07-25 08:10
PROVIDERS: ADMIT Orthopaedic Surgery; ATTEND Orthopaedic Surgery
DX: M17.11 Unilateral primary osteoarthritis, right knee (principal); G89.18 Other acute postprocedural pain; K21.9 Gastro-esophageal reflux disease without esophagitis; I10 Essential (primary) hypertension; M06.9 Rheumatoid arthritis, unspecified; F41.9 Anxiety disorder, unspecified; F12.90 Cannabis use, unspecified, uncomplicated; F32.A Depression, unspecified; Z87.891 Personal history of nicotine dependence; Z90.49 Acquired absence of other specified parts of digestive tract; Z90.710 Acquired absence of both cervix and uterus; Z98.42 Cataract extraction status, left eye; Z98.41 Cataract extraction status, right eye; Z80.1 Family history of malignant neoplasm of trachea, bronchus and lung; Z80.0 Family history of malignant neoplasm of digestive organs; Z79.899 Other long term (current) drug therapy; Z79.1 Long term (current) use of non-steroidal anti-inflammatories (NSAID); Z79.82 Long term (current) use of aspirin; Z88.5 Allergy status to narcotic agent; Z88.2 Allergy status to sulfonamides
CPT/HCPCS: 94640 ×4; 94760 ×2; 97116; 97161; 64999; 64448; 76942; 80053; 85025; 88300; 73560; 27447; G0378; C1713; C1776; C1751; J2250; J1100; J0690 ×3; J2405; J3010; J2270 ×3; J2795 ×2; J2370; J2704